=== PATIENT | male | born 1935 | race Caucasian/White ===

== ENCOUNTER 2019-03-22 00:23 | Emergency (ER) | payer MEDICARE, OTHER, SELFPAY ==
[2019-03-22] VITALS (17 sets, daily range): BP systolic 93–166; BP diastolic 47–128; PULSE 69–139; RESP 10–37; TEMP 32–36.6; O2SAT 84–99
--- NOTE | 2019-03-22 00:41 | ED_ITS ---
HPI - SOB/Dyspnea General Chief Complaint: Shortness of Breath/Dyspnea Stated Complaint: heart problems Time Seen by Provider: 03/22/19 00:39 Source: patient Mode of arrival: ambulatory Limitations: no limitations History of Present Illness The patient reports having an IL 8 weeks ago. He has been having intermittent chest pain since that event. He has had chest pain across the precordium and wrapping around his chest with dyspnea since 4:00 p.m. today. With this he has had no cough or fever. He has been smoker. He has no COPD. He denies orthopnea or peripheral edema. He takes aspirin, but is not anticoagulated. He is a poor historian. Records were obtained from [facility]. He presented there with a STEMI. Apparently he initially refused intervention P an echo was done, revealing akinesis of the septum and hypokinesis the entire anterior wall. The septum. Tendons cart. Additionally is moderate to severe aortic stenosis. It is noted is in CHF. He had initially consented to a catheterization. Three-ve ssel CAD was noted, with a 95% calcified LAD lesion. There is diffuse 80% disease of the LPDA. There is 50-60% lesion to the mid LCX. Apparently the patient refuse surgical therapy at that time, but has a follow-up with a tire sorter today to discuss cardiac bypass. He takes aspirin, Lipitor, t riglide, lisinopril, metoprolol regarding coronary artery disease and risk factors. With the back/chest pain he is having dyspnea, but cannot clearly identify orthopnea. He has no edema. Related Data Allergies Allergy/AdvReac Type Severity Reaction Status Date / Time No Known Drug Allergies Allergy Verified 03/22/19 00:35 Review of Systems Review of Systems ROS Unobtainable: All systems reviewed & are unremarkable except as noted in HPI and below Constitutional Reports system reviewed and no additional complaints, except as docu, Denies body ache(s), Denies fatigue, Denies fever(s) and Denies weakness Eyes Comments: No active complaints ENT Comments: No ENT complaints Cardiovascular Reports as per HPI and Reports dyspnea Comments: Chest pain as noted in HPI. Respiratory Reports cough, Reports pain with cough, Reports dyspnea and Denies wheezing Gastrointestinal Gastrointestinal: Denies abdominal pain, Denies nausea and Denies vomiting Musculoskeletal Denies back pain, Denies muscle weakness, Denies numbness and Denies tingling Integumentary/Breasts Denies erythema and Denies rash Neurologic Denies numbness, Denies tingling and Denies weakness Psychiatric Comments: He denies memory loss, he is obviously a very poor historian, repeating himself frequently. He does not appear to comprehend much of the conversation. Endocrine Denies fatigue Allergic/Immunologic Denies wheezing [facility] Medical History (Updated 03/22/19 @ 07:25 by Fernie Juarez MD) Aortic stenosis (Acute) Cardiac catheterization as the cause of abnormal reaction of the patient, or of later complication, without mention of misadventure at the time of the procedure (Acute) Coronary artery disease (Acute) Hyperlipidemia (Acute) Hypertension (Acute) Myocardial infarction (Acute) Social History Smoking Status: Current every day smoker Social History Smoking Status: Current every day smoker Exam Initial Vital Signs Initial Vital Signs: Vital Signs Pulse Rate 139 H 03/22/19 00:30 Respiratory Rate 37 H 03/22/19 00:30 Blood Pressure 159/109 H 03/22/19 00:30 Pulse Oximetry 88 L 03/22/19 00:30 Const General: cooperative and anxious Nutritional Appearance: average body habitus Orientation: alert, oriented to person, oriented to place and confused (Confused with this past medical history, poor historian.) [facility] Head: normal to inspection, normocephalic and atraumatic Mouth: oral mucosae normal Eyes Conjunctivae: conjunctivae normal Pupils: PERRL EOM: EOM intact bilaterally Neck Neck: No anterior neck swelling and No JVD Chest Chest: normal palpation of entire chest wall Resp Other: Diffuse wheezes. Bibasilar rales. Cardio Rate: tachycardic Rhythm: abnormal rhythm irregularly irregular Heart Sounds: murmur systolic GI Inspection: non-distended Palpation: soft, no hepatosplenomegaly, No guarding, No pulsatile mass and No tender Auscultation: normal bowel sounds Back/Spine/Pelvis Back: No CVA tenderness Skin General: no rashes or lesions noted Neuro General: alert, oriented x3, gait normal and no focal motor deficits Speech: speech normal Extrem General: full ROM and no clubbing, cyanosis or edema Course Course Narrative: The patient presented with chest pain, and dyspnea. He gave a vague history of IL weeks years ago. He reports being here, he was not at this hospital. He was found to be in AFib/RVR and CHF. Aspirin, and metoprolol were given. He was given DuoNeb and BiPAP due to dyspnea. He converted to normal sinus rhythm. EKG 2. Showed normal sinus rhythm, but a pattern suggestive of anterior IL. Record obtained from [facility] revealed a EKG with a similar pattern, anterior Q-waves with ST elevation. However he was pain-free after converted to normal sinus rhythm. the records revealed he had undergone evaluation revealing three-vessel CAD, and aortic stenosis. Dyspnea had gre atly improved. Labs and EKG repeated. The 3rd EKG again showed normal sinus rhythm with the same pattern of anterior Q-waves with ST elevation. There is ST depression. Again the same as EKG 2. In the prior EKG from [facility]. His troponin increased significantly, he remained pain-free. Reviewing the records from [facility], and his severe the ventricular damage, I was not convinced of an anterior IL. The EKG did not change although he was pain free. The troponin did, however, increase. The tachycardia, chest pain dyspnea may result in the elevated troponin. I discussed the case with Cardiology, Dr. Carrion, the [facility], however. He concurred that this does not likely represent acute STEMI. He clearly has old amounts. The patient has responded well to diuresis. Dyspnea is now improved with 1000 mL of urine out. He remains in normal sinus rhythm, asymptomatic and chest pain. Further conversation occurred with the hospitalist at [place], Dr Molina. In a conversation with the hospitalist, I also added my thoughts this gentleman has dementia. She has agreed to accept this patient in transfer. He remains clinically stable without further issues of chest pain while here in the ER. Orders Ordered: ED Orders 03/22/19 EKG-12 Lead Routine EKG-12 Lead Routine 03/22/19 00:41 XR chest 1V Stat EKG-12 Lead Stat 03/22/19 00:47 B Type Natriuretic Peptide Stat Complete Blood Count AUTO DIFF Stat Comprehensive Metabolic Panel Stat Lipase Stat Troponin & CK Cardiac Panel Stat 03/22/19 02:46 Trop I [Troponin I] Stat Sodium Chloride (Normal Saline 0.9%) 1,000 mls @ 150 mls/hr IV CONT KEVEN Last Admin: 03/22/19 02:10 Dose: Not Given Heparin Sodium/Dextrose (Heparin Drip) 25,000 unit in 500 mls @ 17.418 mls/hr IV CONT KEVEN; Protocol Last Admin: 03/22/19 03:58 Dose: 12 units/kg/hr, 17.418 mls/hr Discontinued Medications Albuterol/Ipratropium (Duoneb) 3 ml INH NOW ONE Stop: 03/22/19 01:10 Last Admin: 03/22/19 01:11 Dose: 3 ml Aspirin (Aspirin Chew) 324 mg PO NOW ONE Stop: 03/22/19 00:42 Last Admin: 03/22/19 00:54 Dose: 324 mg Furosemide (Lasix) 40 mg IV NOW ONE Stop: 03/22/19 03:46 Last Admin: 03/22/19 03:54 Dose: 40 mg Heparin Sodium (Porcine) (Heparin) 5,000 unit IV NOW ONE Stop: 03/22/19 03:45 Last Admin: 03/22/19 03:54 Dose: 5,000 unit Metoprolol Tartrate (Lopressor) 5 mg IV Q5M [facility] Stop: 03/22/19 00:56 Last Admin: 03/22/19 01:08 Dose: 5 mg Admin: 03/22/19 00:54 Dose: 5 mg Admin: 03/22/19 00:47 Dose: 5 mg Metoprolol Tartrate (Lopressor) 50 mg PO NOW ONE Stop: 03/22/19 06:25 Last Admin: 03/22/19 06:26 Dose: 50 mg Vital Signs - 8 hr 03/22/19 00:30 03/22/19 00:35 03/22/19 00:50 Temperature 97.9 F Pulse Rate 139 H 136 H 117 H Respiratory Rate 37 H 32 H 30 H Blood Pressure 159/109 H Blood Pressure [Left Arm] 159/109 H 164/106 H Pulse Oximetry 88 L 84 L 90 L 03/22/19 00:55 03/22/19 01:20 03/22/19 01:33 Temperature Pulse Rate 107 H 89 Respiratory Rate 34 H 31 H Blood Pressure 155/88 H Blood Pressure [Left Arm] 166/128 H 155/88 H Pulse Oximetry 89 L 03/22/19 01:55 03/22/19 02:00 03/22/19 02:30 Temperature 96.5 F L Pulse Rate 79 80 81 Respiratory Rate 27 H 29 H 25 H Blood Pressure Blood Pressure [Left Arm] 111/69 126/81 107/64 Pulse Oximetry 99 97 97 03/22/19 03:00 03/22/19 03:30 03/22/19 03:52 Temperature Pulse Rate 81 92 H Respiratory Rate 26 H 34 H Blood Pressure 105/66 Blood Pressure [Left Arm] 105/66 105/55 L Pulse Oximetry 98 92 03/22/19 04:22 Temperature Pulse Rate 75 Respiratory Rate 26 H Blood Pressure Blood Pressure [Left Arm] 102/63 Pulse Oximetry 92 MDM - SOB/Dyspnea Lab Data Result diagrams: 03/22/19 00:47 03/22/19 00:47 Lab Results 03/22/19 03/22/19 03/22/19 Range/Units 00:47 00:47 00:47 WBC 7.8 (4.5-11.0) X10^3/uL RBC 4.48 L (4.5-5.9) X10^6/uL Hgb 15.4 (13.5-17.5) g/dL Hct 45.0 (41-53) % MCV 100.4 H (80-100) fL MCH 34.3 H (26-34) PG MCHC 34.2 (30-36) % RDW 15.5 H (11.6-14.8) % Plt Count 101 L (150-400) X10^3/uL Neut % (Auto) 77.0 H (50-75) % Lymph % (Auto) 14.3 L (25-40) % Bates % (Auto) 8.3 (3-14) % Eos % (Auto) 0.2 L (2-4) % Baso % (Auto) 0.2 (0-2) % Neut # (Auto) 6000 (7408-9385) /uL Lymph # (Auto) 1100 (6758-2391) /uL Bates # (Auto) 600 (0-900) /uL Eos # (Auto) 0 (0-450) /uL Baso # (Auto) 0 (0-100) /uL Sodium 136 L (137-145) mmol/L Potassium 4.0 (3.4-5.1) mmol/L Chloride 105 (98-107) mmol/L Carbon Dioxide 19 L (22-32) mmol/L BUN 19 (9-20) mg/dL Creatinine 1.00 (0.66-1.25) mg/dL Estimated GFR > 60.0 (>60) mL/min BUN/Creatinine Ratio 19.0 (6-22) Glucose 221 H (80-110) mg/dL Calcium 9.0 (8.4-10.2) mg/dL Total Bilirubin 1.6 H (0.2-1.3) mg/dL AST 62 H (17-59) IU/L ALT 33 (21-72) IU/L Alkaline Phosphatase 103 (38-126) U/L Total Creatine Kinase 158 (55-170) U/L CK-MB (CK-2) 9.86 H (<2.37) ng/mL CK-MB (CK-2) Rel Index 6.2 H* (1.5-5.0) % Troponin I 0.851 H* (0.01-0.034) ng/mL B-Natriuretic Peptide 883 H (<100) Total Protein 7.4 (6.3-8.2) g/dL Albumin 3.7 (3.5-5.0) g/dL Globulin 3.7 (1.7-4.1) g/dL Albumin/Globulin Ratio 1.0 (1.0-2.8) Lipase 181 (23-300) U/L 03/22/19 Range/Units 02:46 WBC (4.5-11.0) X10^3/uL RBC (4.5-5.9) X10^6/uL Hgb (13.5-17.5) g/dL Hct (41-53) % MCV (80-100) fL MCH (26-34) PG MCHC (30-36) % RDW (11.6-14.8) % Plt Count (150-400) X10^3/uL Neut % (Auto) (50-75) % Lymph % (Auto) (25-40) % Bates % (Auto) (3-14) % Eos % (Auto) (2-4) % Baso % (Auto) (0-2) % Neut # (Auto) (9475-8654) /uL Lymph # (Auto) (6277-2328) /uL Bates # (Auto) (0-900) /uL Eos # (Auto) (0-450) /uL Baso # (Auto) (0-100) /uL Sodium (137-145) mmol/L Potassium (3.4-5.1) mmol/L Chloride (98-107) mmol/L Carbon Dioxide (22-32) mmol/L BUN (9-20) mg/dL Creatinine (0.66-1.25) mg/dL Estimated GFR (>60) mL/min BUN/Creatinine Ratio (6-22) Glucose (80-110) mg/dL Calcium (8.4-10.2) mg/dL Total Bilirubin (0.2-1.3) mg/dL AST (17-59) IU/L ALT (21-72) IU/L Alkaline Phosphatase (38-126) U/L Total Creatine Kinase (55-170) U/L CK-MB (CK-2) (<2.37) ng/mL CK-MB (CK-2) Rel Index (1.5-5.0) % Troponin I 14.000 H* (0.01-0.034) ng/mL B-Natriuretic Peptide (<100) Total Protein (6.3-8.2) g/dL Albumin (3.5-5.0) g/dL Globulin (1.7-4.1) g/dL Albumin/Globulin Ratio (1.0-2.8) Lipase (23-300) U/L Urine Dip Bedside Urine Glucose Negative Bedside Urine Bilirubin - Negative Bedside Urine Ketone - Negative Urine Specific [place] 1.020 Bedside Urine Occult Blood - Negative Bedside Urine pH 6.0 Bedside Urine Protein - Negative Bedside Urine Urobilinogen - Negative Bedside Urine Nitrite - Negative Bedside Urine Leukocytes - Negative Esterase Imaging Data Chest x-ray: My impression: Pulmonary edema. ECG Data Attestation: I personally reviewed and interpreted this ECG as follows: (EKG 1.: AFib with RVR, rate 132 bpm. LVH. Suspect inferior ischemia, septal versus anterior IL. EKG 2. Normal sinus rhythm rate 83 bpm. LVH. Anterior Q-waves with ST elevation with inferior ST depression. The EKG is similar to the prior EKG from [facility]. EKG 3. Unchanged.) Critical Care Time Critical Care Time: Yes Total Critical Care Time: 50 Attestation: Time included initial evaluation, lab reviews, review of x-ray and lab data, multiple clinical decisions, and consultation leading to transfer. Discharge Plan Departure Patient Disposition: [facility] Clinical Impression: Atrial fibrillation with RVR, CHF (congestive heart failure), Non-ST elevated myocardial infarction (non-STEMI), Chest pain, Aortic valve stenosis, Dementia Referrals: Demar Gil MD [Primary Care Provider] -
--- NOTE | 2019-03-22 00:41 | DI.RAD.S_ITS ---
PROCEDURE: XR CHEST 1V INDICATIONS: Dyspnea TECHNIQUE: One view of the chest was acquired. [place] [facility] [place] 2VW, 12/19/2007, 15:17. Merged With [facility], CR, XR CHEST 1 VIEW, 01/17/2019, 8:02. FINDINGS: Surgical changes and devices: None. Lungs and pleura: There is diffuse increased interstitial markings bilaterally, which has increased in the short-term interval compared to 01/17/2019 and was not appreciable on the CXR from 12/18/2017. The Trace pleural effusion in the right minor fissure. No pneumothorax. Mediastinum: Mediastinal contours are partially secured but appear unchanged. Heart size is normal. Bones and chest wall: No suspicious bony lesions. Overlying soft tissues appear unremarkable. IMPRESSION: Diffuse increased interstitial markings bilaterally which has progressed compared to . Given the rapid progression and trace pleural effusion on the right, favor interstitial edema/CHF. However, underlying fibrosis or interstitial lung disease is in the differential. Dictated by: Romain Dodd M.D. on 03/22/2019 at 7:19 Approved by: Romain Dodd M.D. on 03/22/2019 at 7:46
[2019-03-22] MEDS: METOPROLOL TARTRATE 5 MG/5 ML INJ IV ×3 (00:47→01:08)
[2019-03-22] MEDS: ASPIRIN 81 MG TAB 324 MG PO (00:54)
[2019-03-22 01:09] LABS: Add Manual Diff / Slide Review NO; Basophils Absolute Auto 0 /uL (0-100); Basophils Percent Auto 0.2 % (0-2); Eosinophils Absolute Auto 0 /uL (0-450); Eosinophils Percent Auto 0.2 % (2-4); Hemoglobin 15.4 g/dL (13.5-17.5); Lymphocytes Absolute Auto 1100 /uL (1100-4500); Lymphocytes Percent Auto 14.3 % (25-40); Mean Corpuscular HGB Conc 34.2 % (30-36); Mean Corpuscular Hemoglobin 34.3 PG (26-34); Mean Corpuscular Volume 100.4 fL (80-100); Monocytes Absolute Auto 600 /uL (0-900); Monocytes Percent Auto 8.3 % (3-14); Neutrophils Absolute Auto 6000 /uL (1500-7000); Platelet Count 101 X10^3/uL (150-400); Red Blood Cell Count 4.48 X10^6/uL (4.5-5.9); Red Cell Distribution Width 15.5 % (11.6-14.8); White Blood Cell Count 7.8 X10^3/uL (4.5-11.0)
[2019-03-22] MEDS: ALBUTEROL/IPRATROPIUM 3 ML AMPUL INH (01:11)
[2019-03-22 01:13] LABS: Alanine Aminotransferase 33 IU/L (21-72); Albumin 3.7 g/dL (3.5-5.0); Alkaline Phosphatase 103 U/L (38-126); Aspartate Aminotransferase 62 IU/L (17-59); Bilirubin Total 1.6 mg/dL (0.2-1.3); Blood Urea Nitrogen 19 mg/dL (9-20); Carbon Dioxide 19 mmol/L (22-32); Chloride 105 mmol/L (98-107); Creatine Kinase 158 U/L (55-170); Estimated Glomerular Filt Rate > 60.0 mL/min (>60); Globulin 3.7 g/dL (1.7-4.1); Glucose 221 mg/dL (80-110); HEMOLYSIS < 15 (0-50); Lipase 181 U/L (23-300); Sodium 136 mmol/L (137-145); Total Protein 7.4 g/dL (6.3-8.2)
[2019-03-22 01:29] LABS: Creatine Kinase MB 9.86 ng/mL (<2.37)
[2019-03-22 01:40] LABS: CKMB % Relative Index 6.2 % (1.5-5.0)
[2019-03-22 01:41] LABS: Troponin I 0.851 ng/mL (0.01-0.034)
[2019-03-22 02:06] LABS: B Type Natriuretic Peptide 883 (<100)
--- NOTE | 2019-03-22 02:26 | PC.NURSE ---
Pt placed on BiPap shortly after arrival at 0050. Pt not tolerating nasal canula or respiratory treatments. Responded to Metoprolol with HR in 90's/low 100's. Dr. Larry vuong.
--- NOTE | 2019-03-22 02:27 | PC.NURSE ---
Patient converted to NSR at 0120. Repeat EKG obtained. Patient able to sleep while on BiPap and reports his back pain chest pain is gone. Oxygen sats 99% on Bipap
[2019-03-22] MEDS: FUROSEMIDE 40 MG/4 ML VIAL IV (03:54)
[2019-03-22] MEDS: HEPARIN 5,000 UNIT/ML VIAL 5000 UNIT IV (03:54)
[2019-03-22] MEDS: HEPARIN DRIP 25,000 UNIT/500 ML IV.SOLN 17.418 UNIT IV (03:58)
--- NOTE | 2019-03-22 04:22 | PC.NURSE ---
Heparin Gtt verified with two RN's. PERLA Lowery and this documentation writer.
[2019-03-22] MEDS: METOPROLOL IR 25 MG TABLET 50 MG PO (06:26)
--- NOTE | 2019-03-22 06:27 | PC.NURSE ---
Patient with 16 beat run a 12 beat run of wide complex tachycardia. Dr. Juarez shown rhythm strip and orders received. Pt unaware an asymptomatic of events. Currently in NSR in 80's. Denies CP or back pain.
--- NOTE | 2019-03-22 07:21 | PC.NURSE ---
Patient accepted at [facility], ETA for Ambulance is 0930....no bed assignment yet. Pt aware.
== END 2019-03-22 09:16 | disposition short-term general hospital (02) ==
PROVIDERS: Emergency Provider Emergency Medicine; Family Provider Family Medicine; PCP Family Medicine
DX: I48.91 Unspecified atrial fibrillation (principal); I50.9 Heart failure, unspecified; I21.4 Non-ST elevation (NSTEMI) myocardial infarction; R07.9 Chest pain, unspecified; I35.0 Nonrheumatic aortic (valve) stenosis; F03.90 Unspecified dementia, unspecified severity, without behavioral disturbance, psychotic disturbance, mood disturbance, and anxiety
CPT/HCPCS: 36415; 36591; 71045; 80053; 81003; 82550; 82553; 83690; 83880; 84484; 85025; 93005; 94640; 96365; 96366; 96375; 96376; 99285; J1644; J1940

== ENCOUNTER 2019-05-02 13:39 | Emergency (ER) | payer MEDICARE, OTHER, SELFPAY ==
[2019-03-22 03:30] VITALS: PULSE 84; RESP 29; O2SAT 97
[2019-05-02] VITALS (10 sets, daily range): BP systolic 81–115; BP diastolic 41–87; PULSE 88–104; RESP 18–36; TEMP 36.8; O2SAT 94–100
--- NOTE | 2019-05-02 13:40 | DI.RAD.S_ITS ---
PROCEDURE: XR CHEST 2V INDICATIONS: shortness of breath TECHNIQUE: 2 views of the chest were acquired. COMPARISON: [facility], CR, XR CHEST 1V, 03/22/2019, 0:46. FINDINGS: Surgical changes and devices: None. Lungs and pleura: Chronic emphysematous changes are seen. Small bilateral pleural effusion is also noted more prominent on the left side. Underlying left lower lobe infiltrate cannot be excluded. No gross pneumothorax. There is pulmonary vascular congestion. Mediastinum: Mediastinal contours are normal. Heart size is enlarged. Bones and chest wall: No suspicious bony abnormalities. Soft tissues appear unremarkable. IMPRESSION: Cardiomegaly and mild congestion. Left greater than right bilateral pleural effusion and suggestion of left basilar infiltrate/atelectasis. No gross pneumothorax. COPD. Dictated by: Dean Carlson M.D. on 05/02/2019 at 14:46 Approved by: Dean Carlson M.D. on 05/02/2019 at 14:47
[2019-05-02 14:10] LABS: Add Manual Diff / Slide Review NO; Basophils Absolute Auto 0 /uL (0-100); Basophils Percent Auto 0.9 % (0-2); Eosinophils Absolute Auto 200 /uL (0-450); Eosinophils Percent Auto 3.2 % (2-4); Hematocrit 25.9 % (41-53); Hemoglobin 8.7 g/dL (13.5-17.5); Lymphocytes Absolute Auto 1000 /uL (1100-4500); Lymphocytes Percent Auto 19.2 % (25-40); Mean Corpuscular HGB Conc 33.5 % (30-36); Mean Corpuscular Hemoglobin 32.6 PG (26-34); Mean Corpuscular Volume 97.4 fL (80-100); Monocytes Absolute Auto 600 /uL (0-900); Monocytes Percent Auto 12.9 % (3-14); Neutrophils Absolute Auto 3200 /uL (1500-7000); Neutrophils Percent Auto 63.8 % (50-75); Platelet Count 95 X10^3/uL (150-400); Red Blood Cell Count 2.66 X10^6/uL (4.5-5.9); Red Cell Distribution Width 16.6 % (11.6-14.8)
[2019-05-02 14:23] LABS: Alanine Aminotransferase 63 IU/L (21-72); Albumin Globulin Ratio 0.9 (1.0-2.8); Alkaline Phosphatase 164 U/L (38-126); Aspartate Aminotransferase 84 IU/L (17-59); BUN Creatinine Ratio 12.7 (6-22); Bilirubin Total 1.8 mg/dL (0.2-1.3); Blood Urea Nitrogen 14 mg/dL (9-20); Calcium 8.3 mg/dL (8.4-10.2); Carbon Dioxide 25 mmol/L (22-32); Chloride 103 mmol/L (98-107); Estimated Glomerular Filt Rate > 60.0 mL/min (>60); Globulin 3.5 g/dL (1.7-4.1); Glucose 161 mg/dL (80-110); HEMOLYSIS < 15 (0-50); Lactate (Lactic Acid) 2.8 mmol/L (0.7-2.1); Potassium 3.4 mmol/L (3.4-5.1); Sodium 137 mmol/L (137-145); Total Protein 6.5 g/dL (6.3-8.2)
[2019-05-02 15:56] LABS: Reflexed Lactate in 2 Hours Y
--- NOTE | 2019-05-02 15:59 | ED.SOB ---
HPI - SOB/Dyspnea <Lea Katz MD - Last Filed: 05/03/19 20:40> General Chief Complaint: Shortness of Breath/Dyspnea Stated Complaint: 2 days of SOB Time Seen by Provider: 05/02/19 14:22 Source: patient Mode of arrival: ambulatory Limitations: no limitations History of Present Illness HPI Narrative: Patient comes emergency department complaining of shortness of breath that started a few days ago. The patient states that he has not had a cough or chest pain. No fevers. He has felt generally weak. The patient lives at home, he states, and although he lives by himself, he does have caregivers that come in and help him throughout the day. They are the ones that sent him here. The patient has a history of COPD and CHF. He also has had a couple of recent MIs, and states he received stents at [facility] in March. The patient states his current symptoms do not feel like his previous MIs. Patient denies swelling in his legs. No calf pain. No other complaints at this time. Related Data Home Medications Medication Instructions Recorded Confirmed apixaban [Eliquis] 5 mg PO BID 05/02/19 05/02/19 atorvastatin 80 mg PO QPM 05/02/19 05/02/19 famotidine 20 mg PO BID 05/02/19 05/02/19 furosemide 40 mg PO QAM 05/02/19 05/02/19 melatonin 10 mg PO BEDTIME 05/02/19 05/02/19 metoprolol succinate 25 mg PO DAILY 05/02/19 05/02/19 nitroglycerin 0.4 mg SUBLINGUAL PRN PRN 05/02/19 05/02/19 potassium chloride 10 meq PO DAILY 05/02/19 05/02/19 ticagrelor [Brilinta] 90 mg PO BID 05/02/19 05/02/19 zolpidem 10 mg PO BEDTIME 05/02/19 05/02/19 Allergies Allergy/AdvReac Type Severity Reaction Status Date / Time No Known Drug Allergies Allergy Verified 05/02/19 13:55 Review of Systems <Lea Katz MD - Last Filed: 05/03/19 20:40> Constitutional Constitutional: Denies chills, Denies fatigue, Denies fever(s), Denies frequent falls, Denies lethargy and Denies weakness Eyes Eyes: Denies change in vision, Denies eye discharge, Denies irritation and Denies loss of vision ENT Ears, Nose, Mouth, and Throat: Denies change in voice, Denies dizziness, Denies neck pain, Denies sore throat and Denies throat swelling Cardiovascular Cardiovascular: Denies chest pain, Denies irregular heart rhythm, Denies lightheadedness, Denies palpitations, Reports dyspnea, Reports dyspnea on exertion and Denies orthopnea Respiratory Respiratory: Denies cough, Reports dyspnea, Reports dyspnea on exertion and Denies wheezing Gastrointestinal Gastrointestinal: Denies abdominal pain, Denies change in bowel habits, Denies diarrhea, Denies nausea and Denies vomiting Genitourinary Genitourinary: Denies hematuria, Denies flank pain, Denies urinary incontinence and Denies urinary urgency Musculoskeletal Musculoskeletal: Denies back pain, Denies muscle weakness, Denies neck pain, Denies numbness and Denies tingling Integumentary/Breasts Skin/Breast: Denies pruritus, Denies erythema, Denies rash and Denies wounds Neurologic Neurologic: Denies behavioral changes, Denies confusion, Denies dizziness, Denies frequent falls, Denies loss of vision, Denies numbness, Denies tingling and Denies weakness Psychiatric Psychiatric: Denies anxiety, Denies behavioral changes, Denies confusion, Denies depression, Denies homicidal ideation and Denies suicidal ideation Endocrine Endocrine: Denies fatigue, Denies flushing and Denies palpitations Hematologic/Lymphatic Hematologic/Lymphatic: Denies easy bruising Allergic/Immunologic Allergic/Immunologic: Denies urticaria, Denies throat swelling and Denies wheezing PFSH <Lea Katz MD - Last Filed: 05/03/19 20:40> Medical History (Updated 05/02/19 @ 21:26 by Farhana Rizzo DO) Aortic stenosis (Acute) Cardiac catheterization as the cause of abnormal reaction of the patient, or of later complication, without mention of misadventure at the time of the procedure (Acute) Coronary artery disease (Acute) Hyperlipidemia (Acute) Hypertension (Acute) Myocardial infarction (Acute) Surgical History H/O angioplasty (Acute) Social History Smoking Status: Never smoker Social History Smoking Status: Never smoker Exam <Lea Katz MD - Last Filed: 05/03/19 20:40> Initial Vital Signs Initial Vital Signs: Vital Signs Temperature 98.3 F 05/02/19 13:40 Pulse Rate 101 H 05/02/19 13:40 Respiratory Rate 18 05/02/19 13:40 Blood Pressure 97/54 L 05/02/19 13:40 Pulse Oximetry 100 05/02/19 13:40 Const General: cooperative and well developed Nutritional Appearance: well nourished Orientation: alert, awake, oriented x3 and not confused HENMT Head: normocephalic and atraumatic Ears: external ears normal and TM's normal bilaterally Nose: external nose normal and No nasal discharge Face and sinus: sinuses nontender, face symmetric, no sinus tenderness and No dry mucous membranes Mouth: oral mucosae normal and moist mucous membranes Teeth and gingiva: dentition normal Throat: tonsils normal and uvula midline Eyes General: appearance normal, both eyes and all related structures Eyelids: eyelids normal Conjunctivae: conjunctivae normal Sclera: sclerae normal Pupils: PERRL EOM: EOM intact bilaterally Neck Neck: normal visual inspection, trachea midline, No lymphadenopathy, No midline deformity and No JVD Lymphatic: No lymphedema Chest Chest: normal inspection of the chest Resp Effort & Inspection: normal respiratory effort, able to speak in complete sentences, no respiratory distress and no use of accessory muscles Auscultation: clear to auscultation bilaterally, no rales, no rhonchi and no wheezes Other: Patient has decreased air movement and mildly labored respirations. He is not in respiratory distress, except for a brief period after being sat up in bed and holding himself up, after which he was found to have increased laboring and brief mild respiratory distress. Cardio Rate: regular rate Rhythm: regular rhythm Heart Sounds: no click, no gallops, no murmurs and no rubs Pulses: normal peripheral pulses GI Inspection: non-distended Palpation: soft, no hepatosplenomegaly, No guarding, No pulsatile mass and No tender Auscultation: normal bowel sounds Back/Spine/Pelvis Back: No CVA tenderness Cervical Spine: cervical ROM normal and No pain with cervical ROM Thoracic/Lumbar Spine: thoracic and lumbar spine normal to inspection Skin General: no rashes or lesions noted, No jaundice and No petechiae Neuro General: alert, oriented x3, gait normal and no focal motor deficits Speech: speech normal Extrem General: full ROM, no calf tenderness and edema (Trace) Psych Appearance: well kempt Mental Status: mental status grossly normal Attitude: cooperative Thought Content: normal and suicidality Judgment: judgment good <Farhana Rizzo DO - Last Filed: 05/03/19 00:43> Initial Vital Signs Initial Vital Signs: Vital Signs Temperature 98.3 F 05/02/19 13:40 Pulse Rate 101 H 05/02/19 13:40 Respiratory Rate 18 05/02/19 13:40 Blood Pressure 97/54 L 05/02/19 13:40 Pulse Oximetry 100 05/02/19 13:40 Course <Lea Katz MD - Last Filed: 05/03/19 20:40> Course Course Narrative: Patient was worked up with labs, EKG, chest x-ray. Chest x-ray showed possible pneumonia and bilateral pleural effusion. Patient's BNP was significantly elevated at 2700. Patient was treated with antibiotics in the emergency department, and given a small bolus of 0.9 normal saline 250 cc. His blood pressure did improve from initially hypotensive to normotensive. His initial lactate was 2.8, but repeat was found to be 2.0. Patient's initial troponin was found to be mildly elevated. Repeat is pending at this time. Patient is signed out to Dr. Rizzo pending repeat troponin and final disposition. Orders Ordered: Discontinued Medications Furosemide (Lasix) 40 mg IV NOW ONE Stop: 05/02/19 19:14 Last Admin: 05/02/19 19:30 Dose: 40 mg Documented by: HFARRINGTO Ceftriaxone Sodium/Dextrose (Rocephin) 2 gm in 50 mls @ 100 mls/hr IV NOW ONE Stop: 05/02/19 17:40 Last Infusion: 05/02/19 18:45 Dose: 0 mls/hr Documented by: Admin: 05/02/19 17:32 Dose: 100 mls/hr Documented by: MEISENB Sodium Chloride (Normal Saline 0.9%) 1,000 mls @ 250 mls/hr IV BOLUS ONE Stop: 05/02/19 21:09 Last Infusion: 05/02/19 18:45 Dose: 0 mls/hr Documented by: Infusion: 05/02/19 18:45 Dose: 0 mls/hr Documented by: Admin: 05/02/19 17:32 Dose: 250 mls/hr Documented by: BANDAR Vital Signs Vital signs: Vital Signs - 8 hr 05/02/19 17:00 05/02/19 17:21 05/02/19 20:50 Pulse Rate 92 H 88 88 Respiratory Rate 26 H 20 24 Blood Pressure Blood Pressure [Left Arm] 103/56 L 81/52 L 115/69 Pulse Oximetry 95 96 95 05/02/19 21:10 05/02/19 22:11 Pulse Rate 104 H 88 Respiratory Rate 27 H 36 H Blood Pressure 111/87 Blood Pressure [Left Arm] 112/77 Pulse Oximetry 97 94 <Farhana Rizzo DO - Last Filed: 05/03/19 00:43> Orders Ordered: Discontinued Medications Furosemide (Lasix) 40 mg IV NOW ONE Stop: 05/02/19 19:14 Last Admin: 05/02/19 19:30 Dose: 40 mg Documented by: HALEY Ceftriaxone Sodium/Dextrose (Rocephin) 2 gm in 50 mls @ 100 mls/hr IV NOW ONE Stop: 05/02/19 17:40 Last Infusion: 05/02/19 18:45 Dose: 0 mls/hr Documented by: Admin: 05/02/19 17:32 Dose: 100 mls/hr Documented by: BANDAR Sodium Chloride (Normal Saline 0.9%) 1,000 mls @ 250 mls/hr IV BOLUS ONE Stop: 05/02/19 21:09 Last Infusion: 05/02/19 18:45 Dose: 0 mls/hr Documented by: Infusion: 05/02/19 18:45 Dose: 0 mls/hr Documented by: Admin: 05/02/19 17:32 Dose: 250 mls/hr Documented by: BANDAR Vital Signs Vital signs: Vital Signs - 8 hr 05/02/19 17:00 05/02/19 17:21 05/02/19 20:50 Pulse Rate 92 H 88 88 Respiratory Rate 26 H 20 24 Blood Pressure Blood Pressure [Left Arm] 103/56 L 81/52 L 115/69 Pulse Oximetry 95 96 95 08/29/19 21:10 05/02/19 22:11 Pulse Rate 104 H 88 Respiratory Rate 27 H 36 H Blood Pressure 111/87 Blood Pressure [Left Arm] 112/77 Pulse Oximetry 97 94 MDM - SOB/Dyspnea <Lea Katz MD - Last Filed: 05/03/19 20:40> Lab Data Result diagrams: 05/02/19 13:52 05/02/19 13:52 Labs: Lab Results 05/02/19 05/02/19 05/02/19 Range/Units 13:52 13:52 13:52 WBC 5.0 (4.5-11.0) X10^3/uL RBC 2.66 L (4.5-5.9) X10^6/uL Hgb 8.7 L (13.5-17.5) g/dL Hct 25.9 L (41-53) % MCV 97.4 (80-100) fL MCH 32.6 (26-34) PG MCHC 33.5 (30-36) % RDW 16.6 H (11.6-14.8) % Plt Count 95 L (150-400) X10^3/uL Neut % (Auto) 63.8 (50-75) % Lymph % (Auto) 19.2 L (25-40) % [place] % (Auto) 12.9 (3-14) % Eos % (Auto) 3.2 (2-4) % Baso % (Auto) 0.9 (0-2) % Neut # (Auto) 3200 (9991-4519) /uL Lymph # (Auto) 1000 L (2026-9681) /uL [place] # (Auto) 600 (0-900) /uL Eos # (Auto) 200 (0-450) /uL Baso # (Auto) 0 (0-100) /uL Sodium 137 (137-145) mmol/L Potassium 3.4 (3.4-5.1) mmol/L Chloride 103 (98-107) mmol/L Carbon Dioxide 25 (22-32) mmol/L BUN 14 (9-20) mg/dL Creatinine 1.10 (0.66-1.25) mg/dL Estimated GFR > 60.0 (>60) mL/min BUN/Creatinine Ratio 12.7 (6-22) Glucose 161 H (80-110) mg/dL Lactate 2.8 H (0.7-2.1) mmol/L Calcium 8.3 L (8.4-10.2) mg/dL Total Bilirubin 1.8 H (0.2-1.3) mg/dL AST 84 H (17-59) IU/L ALT 63 (21-72) IU/L Alkaline Phosphatase 164 H (38-126) U/L Total Creatine Kinase (55-170) U/L CK-MB (CK-2) (<2.37) ng/mL CK-MB (CK-2) Rel Index (1.5-5.0) % Troponin I (0.01-0.034) ng/mL B-Natriuretic Peptide (<100) Total Protein 6.5 (6.3-8.2) g/dL Albumin 3.0 L (3.5-5.0) g/dL Globulin 3.5 (1.7-4.1) g/dL Albumin/Globulin Ratio 0.9 L (1.0-2.8) 05/02/19 05/02/19 05/02/19 Range/Units 13:52 16:05 16:05 WBC (4.5-11.0) X10^3/uL RBC (4.5-5.9) X10^6/uL Hgb (13.5-17.5) g/dL Hct (41-53) % MCV (80-100) fL MCH (26-34) PG MCHC (30-36) % RDW (11.6-14.8) % Plt Count (150-400) X10^3/uL Neut % (Auto) (50-75) % Lymph % (Auto) (25-40) % [place] % (Auto) (3-14) % Eos % (Auto) (2-4) % Baso % (Auto) (0-2) % Neut # (Auto) (9056-4313) /uL Lymph # (Auto) (3708-6182) /uL [place] # (Auto) (0-900) /uL Eos # (Auto) (0-450) /uL Baso # (Auto) (0-100) /uL Sodium (137-145) mmol/L Potassium (3.4-5.1) mmol/L Chloride (98-107) mmol/L Carbon Dioxide (22-32) mmol/L BUN (9-20) mg/dL Creatinine (0.66-1.25) mg/dL Estimated GFR (>60) mL/min BUN/Creatinine Ratio (6-22) Glucose (80-110) mg/dL Lactate 2.0 (0.7-2.1) mmol/L Calcium (8.4-10.2) mg/dL Total Bilirubin (0.2-1.3) mg/dL AST (17-59) IU/L ALT (21-72) IU/L Alkaline Phosphatase (38-126) U/L Total Creatine Kinase 109 (55-170) U/L CK-MB (CK-2) 2.78 H (<2.37) ng/mL CK-MB (CK-2) Rel Index 2.6 (1.5-5.0) % Troponin I 0.112 H (0.01-0.034) ng/mL B-Natriuretic Peptide 2760 H (<100) Total Protein (6.3-8.2) g/dL Albumin (3.5-5.0) g/dL Globulin (1.7-4.1) g/dL Albumin/Globulin Ratio (1.0-2.8) 05/02/ Range/Units 18:15 WBC (4.5-11.0) X10^3/uL RBC (4.5-5.9) X10^6/uL Hgb (13.5-17.5) g/dL Hct (41-53) % MCV (80-100) fL MCH (26-34) PG MCHC (30-36) % RDW (11.6-14.8) % Plt Count (150-400) X10^3/uL Neut % (Auto) (50-75) % Lymph % (Auto) (25-40) % [place] % (Auto) (3-14) % Eos % (Auto) (2-4) % Baso % (Auto) (0-2) % Neut # (Auto) (7513-1879) /uL Lymph # (Auto) (7538-8509) /uL [place] # (Auto) (0-900) /uL Eos # (Auto) (0-450) /uL Baso # (Auto) (0-100) /uL Sodium (137-145) mmol/L Potassium (3.4-5.1) mmol/L Chloride (98-107) mmol/L Carbon Dioxide (22-32) mmol/L BUN (9-20) mg/dL Creatinine (0.66-1.25) mg/dL Estimated GFR (>60) mL/min BUN/Creatinine Ratio (6-22) Glucose (80-110) mg/dL Lactate (0.7-2.1) mmol/L Calcium (8.4-10.2) mg/dL Total Bilirubin (0.2-1.3) mg/dL AST (17-59) IU/L ALT (21-72) IU/L Alkaline Phosphatase (38-126) U/L Total Creatine Kinase (55-170) U/L CK-MB (CK-2) (<2.37) ng/mL CK-MB (CK-2) Rel Index (1.5-5.0) % Troponin I 0.126 H* (0.01-0.034) ng/mL B-Natriuretic Peptide (<100) Total Protein (6.3-8.2) g/dL Albumin (3.5-5.0) g/dL Globulin (1.7-4.1) g/dL Albumin/Globulin Ratio (1.0-2.8) Urine Dip Bedside Urine Glucose Negative Bedside Urine Bilirubin - Negative Bedside Urine Ketone - Negative Urine Specific [place] 1.015 Bedside Urine Occult Blood - Negative Bedside Urine pH 6.0 Bedside Urine Protein - Negative Bedside Urine Urobilinogen - Negative Bedside Urine Nitrite - Negative Bedside Urine Leukocytes - Negative Esterase <Farhana Rizzo, - Last Filed: 05/03/19 00:43> Lab Data Attestation: I reviewed the patient's lab results. Labs: Lab Results 05/02/19 05/02/19 05/02/19 Range/Units 13:52 13:52 13:52 WBC 5.0 (4.5-11.0) X10^3/uL RBC 2.66 L (4.5-5.9) X10^6/uL Hgb 8.7 L (13.5-17.5) g/dL Hct 25.9 L (41-53) % MCV 97.4 (80-100) fL MCH 32.6 (26-34) PG MCHC 33.5 (30-36) % RDW 16.6 H (11.6-14.8) % Plt Count 95 L (150-400) X10^3/uL Neut % (Auto) 63.8 (50-75) % Lymph % (Auto) 19.2 L (25-40) % [place] % (Auto) 12.9 (3-14) % Eos % (Auto) 3.2 (2-4) % Baso % (Auto) 0.9 (0-2) % Neut # (Auto) 3200 (6182-0027) /uL Lymph # (Auto) 1000 L (5894-8999) /uL [place] # (Auto) 600 (0-900) /uL Eos # (Auto) 200 (0-450) /uL Baso # (Auto) 0 (0-100) /uL Sodium 137 (137-145) mmol/L Potassium 3.4 (3.4-5.1) mmol/L Chloride 103 (98-107) mmol/L Carbon Dioxide 25 (22-32) mmol/L BUN 14 (9-20) mg/dL Creatinine 1.10 (0.66-1.25) mg/dL Estimated GFR > 60.0 (>60) mL/min BUN/Creatinine Ratio 12.7 (6-22) Glucose 161 H (80-110) mg/dL Lactate 2.8 H (0.7-2.1) mmol/L Calcium 8.3 L (8.4-10.2) mg/dL Total Bilirubin 1.8 H (0.2-1.3) mg/dL AST 84 H (17-59) IU/L ALT 63 (21-72) IU/L Alkaline Phosphatase 164 H (38-126) U/L Total Creatine Kinase (55-170) U/L CK-MB (CK-2) (<2.37) ng/mL CK-MB (CK-2) Rel Index (1.5-5.0) % Troponin I (0.01-0.034) ng/mL B-Natriuretic Peptide (<100) Total Protein 6.5 (6.3-8.2) g/dL Albumin 3.0 L (3.5-5.0) g/dL Globulin 3.5 (1.7-4.1) g/dL Albumin/Globulin Ratio 0.9 L (1.0-2.8) 05/02/19 05/02/19 05/02/19 Range/Units 13:52 16:05 16:05 WBC (4.5-11.0) X10^3/uL RBC (4.5-5.9) X10^6/uL Hgb (13.5-17.5) g/dL Hct (41-53) % MCV (80-100) fL MCH (26-34) PG MCHC (30-36) % RDW (11.6-14.8) % Plt Count (150-400) X10^3/uL Neut % (Auto) (50-75) % Lymph % (Auto) (25-40) % [place] % (Auto) (3-14) % Eos % (Auto) (2-4) % Baso % (Auto) (0-2) % Neut # (Auto) (1098-8849) /uL Lymph # (Auto) (3203-6077) /uL [place] # (Auto) (0-900) /uL Eos # (Auto) (0-450) /uL Baso # (Auto) (0-100) /uL Sodium (137-145) mmol/L Potassium (3.4-5.1) mmol/L Chloride (98-107) mmol/L Carbon Dioxide (22-32) mmol/L BUN (9-20) mg/dL Creatinine (0.66-1.25) mg/dL Estimated GFR (>60) mL/min BUN/Creatinine Ratio (6-22) Glucose (80-110) mg/dL Lactate 2.0 (0.7-2.1) mmol/L Calcium (8.4-10.2) mg/dL Total Bilirubin (0.2-1.3) mg/dL AST (17-59) IU/L ALT (21-72) IU/L Alkaline Phosphatase (38-126) U/L Total Creatine Kinase 109 (55-170) U/L CK-MB (CK-2) 2.78 H (<2.37) ng/mL CK-MB (CK-2) Rel Index 2.6 (1.5-5.0) % Troponin I 0.112 H (0.01-0.034) ng/mL B-Natriuretic Peptide 2760 H (<100) Total Protein (6.3-8.2) g/dL Albumin (3.5-5.0) g/dL Globulin (1.7-4.1) g/dL Albumin/Globulin Ratio (1.0-2.8) 05/02/19 Range/Units 18:15 WBC (4.5-11.0) X10^3/uL RBC (4.5-5.9) X10^6/uL Hgb (13.5-17.5) g/dL Hct (41-53) % MCV (80-100) fL MCH (26-34) PG MCHC (30-36) % RDW (11.6-14.8) % Plt Count (150-400) X10^3/uL Neut % (Auto) (50-75) % Lymph % (Auto) (25-40) % [place] % (Auto) (3-14) % Eos % (Auto) (2-4) % Baso % (Auto) (0-2) % Neut # (Auto) (1305-0646) /uL Lymph # (Auto) (8759-2442) /uL [place] # (Auto) (0-900) /uL Eos # (Auto) (0-450) /uL Baso # (Auto) (0-100) /uL Sodium (137-145) mmol/L Potassium (3.4-5.1) mmol/L Chloride (98-107) mmol/L Carbon Dioxide (22-32) mmol/L BUN (9-20) mg/dL Creatinine (0.66-1.25) mg/dL Estimated GFR (>60) mL/min BUN/Creatinine Ratio (6-22) Glucose (80-110) mg/dL Lactate (0.7-2.1) mmol/L Calcium (8.4-10.2) mg/dL Total Bilirubin (0.2-1.3) mg/dL AST (17-59) IU/L ALT (21-72) IU/L Alkaline Phosphatase (38-126) U/L Total Creatine Kinase (55-170) U/L CK-MB (CK-2) (<2.37) ng/mL CK-MB (CK-2) Rel Index (1.5-5.0) % Troponin I 0.126 H* (0.01-0.034) ng/mL B-Natriuretic Peptide (<100) Total Protein (6.3-8.2) g/dL Albumin (3.5-5.0) g/dL Globulin (1.7-4.1) g/dL Albumin/Globulin Ratio (1.0-2.8) Urine Dip Bedside Urine Glucose Negative Bedside Urine Bilirubin - Negative Bedside Urine Ketone - Negative Urine Specific [place] 1.015 Bedside Urine Occult Blood - Negative Bedside Urine pH 6.0 Bedside Urine Protein - Negative Bedside Urine Urobilinogen - Negative Bedside Urine Nitrite - Negative Bedside Urine Leukocytes - Negative Esterase MDM Narrative Medical decision making narrative: Patient signed out to me by Dr. Katz, I have done independent exam interviewed patient myself. He has increasing shortness of breath starting yesterday he has positive orthopnea. No fevers or productive cough. He denies any chest discomfort at all. BNP is significantly elevated at 2700 with cardiomegaly and mild congestion on x-ray. A he was requiring a small amount of oxygen as well. Patient appears to be in CHF. He did get antibiotics for possible pneumonia and slightly elevated lactic acid. He is also noted to be anemic with hemoglobin of 8.7 previously 15.4 March 22. Repeat troponin minimally elevated likely due to heart strain secondary to CHF. I spoke with hospitalist Lito CLEARY, who felt uncomfortable keeping patient here with elevated troponin due to recent stents. [facility] does not have bed [facility] does not have bed Dr. Raman, hospitalist at [facility] is happy to accept. Discharge Plan Departure Patient Disposition: [facility] Clinical Impression: Congestive heart failure Qualifiers: Heart failure type: unspecified Heart failure chronicity: acute Qualified Code(s): I50.9 - Heart failure, unspecified Discharge Date/Time: 05/02/19 22:21 Prescriptions: No Action furosemide 40 mg tablet 40 mg PO QAM RF: 0 atorvastatin 80 mg tablet 80 mg PO QPM RF: 0 potassium chloride 10 mEq tablet extended release 10 meq PO DAILY RF: 0 famotidine 20 mg tablet 20 mg PO BID RF: 0 nitroglycerin 0.4 mg tablet, sublingual 0.4 mg sublingual PRN PRN (Reason: Chest Pain) RF: 0 metoprolol succinate 25 mg tablet extended release 24 hr 25 mg PO DAILY RF: 0 zolpidem 10 mg tablet 10 mg PO BEDTIME RF: 0 Brilinta 90 mg tablet 90 mg PO BID RF: 0 melatonin 10 mg Tablet 10 mg PO BEDTIME RF: 0 Eliquis 5 mg tablet 5 mg PO BID RF: 0 Referrals: Demar Gil MD [Primary Care Provider] -
[2019-05-02 16:35] LABS: Creatine Kinase 109 U/L (55-170)
[2019-05-02 16:48] LABS: Troponin I 0.112 ng/mL (0.01-0.034)
[2019-05-02 16:51] LABS: CKMB % Relative Index 2.6 % (1.5-5.0); Creatine Kinase MB 2.78 ng/mL (<2.37)
[2019-05-02 16:52] LABS: B Type Natriuretic Peptide 2760 (<100)
[2019-05-02] MEDS: CEFTRIAXONE 2 GM/50 ML FROZ.PIGGY IV (17:32)
[2019-05-02] MEDS: SODIUM CHLORIDE 0.9% 1,000 ML 250 ML IV (17:32)
[2019-05-02 19:16] LABS: Troponin I 0.126 ng/mL (0.01-0.034)
[2019-05-02] MEDS: FUROSEMIDE 40 MG/4 ML VIAL IV (19:30)
--- NOTE | 2019-05-02 21:58 | PC.NURSE ---
report called to celia de la torre at [facility]
== END 2019-05-02 22:21 | disposition short-term general hospital (02) ==
PROVIDERS: Emergency Medicine; Emergency Provider Emergency Medicine; Family Provider Family Medicine; PCP Family Medicine
DX: I11.0 Hypertensive heart disease with heart failure (principal); R79.89 Other specified abnormal findings of blood chemistry; I25.2 Old myocardial infarction; Z95.5 Presence of coronary angioplasty implant and graft
CPT/HCPCS: 36415; 36591; 71046; 80053; 81003; 82550; 82553; 83605; 83880; 84484; 85025; 93005; 96365; 96375; 99285; J0696; J1940